=== PATIENT | female | born 1965 | race Caucasian/White ===

== ENCOUNTER 2017-03-09 18:10 | Emergency (ER) | payer OTHER ==
[~2017-03-09] VITALS: Ht 152.4 cm; Wt 65.8 kg
[2017-03-09 18:15] VITALS: BP_SYST 116
--- NOTE | 2017-03-09 18:20 | NUR ---
Ambulatory to bed 8
--- NOTE | 2017-03-09 18:24 | NUR ---
Dr. Clifford at bedside for evaluation
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
[2017-03-09 18:58] VITALS: BP_SYST 116
--- NOTE | 2017-03-09 18:58 | NUR ---
Patient given written and verbal discharge instructions and verbalizes understanding. ER MD discussed with patient the results and treatment provided. Patient in stable condition. ID arm band removed. Rx of Benavides, Naprosyn and Soma given. Patient educated on pain management and to follow up with PMD in 2-3 days. Pain Scale 0/10 Opportunity for questions provided and answered.
== END 2017-03-09 18:58 | disposition home or self-care (01) ==
LOC: SED 18:10
DX: S16.1XXA Strain of muscle, fascia and tendon at neck level, initial encounter (principal); M25.511 Pain in right shoulder; M54.6 Pain in thoracic spine; V43.52XA Car driver injured in collision with other type car in traffic accident, initial encounter; Y93.89 Activity, other specified; Y92.488 Other paved roadways as the place of occurrence of the external cause; Y99.8 Other external cause status
CPT/HCPCS: 99283